=== PATIENT | male | born 2005 | race Caucasian/White ===

== ENCOUNTER 2023-11-19 15:01 | Emergency (ER) | payer OTHER, SELFPAY ==
[2023-11-19 15:06] VITALS: BP 163/83
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
[2023-11-19 16:26] VITALS: BP 147/70
[2023-11-19 16:27] VITALS: BP 147/70
== END 2023-11-19 16:38 | disposition home or self-care (01) ==
LOC: EMR 15:01
PROVIDERS: EMERGENCY PHYSICIAN Emergency Medicine; FAMILY PHYSICIAN Internal Medicine
DX: M25.561 Pain in right knee (principal); V43.52XA Car driver injured in collision with other type car in traffic accident, initial encounter
CPT/HCPCS: 99281